=== PATIENT | female | born 1995 | race Caucasian/White ===

== ENCOUNTER 2016-07-07 10:28 | Inpatient (IN) | payer OTHER ==
[~2016-07-07] VITALS: Ht 154.9 cm; Wt 64.5 kg
[2016-07-10] MEDS ORDERED: OXYTOCIN 30U/ 0.9% NaCL 500ML 500 ML IV ONE (21:25)
[2016-07-10] MEDS ORDERED: ONDANSETRON 2MG/ML, 2ML IVPush PRN (21:30)
[2016-07-10] MEDS ORDERED: CALCIUM CARBONATE 500 MG TAB.CHEW PO PRN (21:30)
[2016-07-10] MEDS ORDERED: FENTANYL PF 100 MCG/2ML IVPush PRN (21:30)
[2016-07-10] MEDS ORDERED: TERBUTALINE 1 MG/ML, 1ML IVPush PRN (21:30)
[2016-07-10] MEDS ORDERED: FENTANYL PF 100 MCG/2ML IV PRN (21:30)
[2016-07-10] MEDS ORDERED: MISOPROSTOL 25 MCG TABLET VG PRN (21:30)
[2016-07-10 21:46] LABS: HEMOGLOBIN 12.6 g/dL (11.7-16.4)
[2016-07-10] MEDS ORDERED: PLEASE ENTER HEIGHT AND WEIGHT MC SCH (22:00)
[2016-07-10] MEDS ORDERED: LIDOCAINE 1%, 20ML ONE (22:05)
[2016-07-10] MEDS ORDERED: MISOPROSTOL 25 MCG TABLET ONE (22:05)
[2016-07-10] MEDS ORDERED: OXYTOCIN 30U/ 0.9% NaCL 500ML 500 ML ONE (22:06)
[2016-07-10] MEDS ORDERED: MISOPROSTOL 200 MCG TABLET ONE (22:06)
[2016-07-11] MEDS: LACTATED RINGERS 1,000 ML IV SCH ×5 (03:35→22:57)
[2016-07-11] MEDS ORDERED: FENTANYL/BUPIV./NS/PF 250 ML EPIDCONT ONE (04:08)
[2016-07-11] MEDS: D5%-LACTATED RINGERS 1,000 ML IV SCH ×3 (05:34→21:25)
[2016-07-11] MEDS ORDERED: FENTANYL/BUPIV./NS/PF 250 ML EPIDCONT SCH (06:57)
[2016-07-11] MEDS ORDERED: LACTATED RINGERS 1,000 ML IVBOLUS PRN (07:00)
[2016-07-11 07:54] VITALS: BP 114/76
[2016-07-11] MEDS ORDERED: OXYTOCIN 30U/ 0.9% NaCL 500ML 500 ML IV PRN (08:43)
[2016-07-11] MEDS ORDERED: NEWBORN KIT ONE (09:10)
[2016-07-11] MEDS ORDERED: PREN1TAB60 PO (09:59)
[2016-07-11] MEDS ORDERED: OXYTOCIN 30U/ 0.9% NaCL 500ML 500 ML IV SCH (18:27)
[2016-07-11] MEDS ORDERED: OXYcodone/APAP 5/325MG TABLET PO PRN (18:30)
[2016-07-11] MEDS ORDERED: MISOPROSTOL 200 MCG TABLET PR PRN (18:30)
[2016-07-11] MEDS ORDERED: OXYcodone IR 5MG TABLET PO PRN (18:30)
[2016-07-11] MEDS ORDERED: ONDANSETRON 2MG/ML, 2ML IV PRN (18:30)
[2016-07-11] MEDS ORDERED: OXYTOCIN 30U/ 0.9% NaCL 500ML 500 ML ONE (19:05)
[2016-07-11 19:58] VITALS: BP 143/64
[2016-07-11] MEDS ORDERED: IBUPROFEN 600 MG TABLET ONE (20:07)
[2016-07-11] MEDS: IBUPROFEN 600 MG TABLET PO PRN (20:11)
[2016-07-11 20:45] VITALS: BP 126/73
[2016-07-11 22:15] VITALS: BP 117/67
[2016-07-12 00:26] VITALS: BP 108/60
[2016-07-12 03:10] LABS: HEMOGLOBIN 10.4 g/dL (11.7-16.4)
[2016-07-12 03:45] LABS: DIFF TOTAL CELLS COUNTED 100 CELL DIFF
[2016-07-12 03:46] LABS: LARGE PLATELETS 1+; VERIFY COUNTS? YES
[2016-07-12 04:01] VITALS: BP 111/65
[2016-07-12 08:30] VITALS: BP 101/59
[2016-07-12] MEDS: PRENATAL VIT/IRON/FA 1 EACH TABLET PO SCH (08:34)
[2016-07-12] MEDS: IBUPROFEN 600 MG TABLET PO PRN ×2 (08:34→16:51)
[2016-07-12] MEDS: DOCUSATE 100 MG CAPSULE PO PRN (08:34)
[2016-07-12 12:00] VITALS: BP 120/79
[2016-07-12 16:00] VITALS: BP 114/72
[2016-07-12 21:00] VITALS: BP 107/64
[2016-07-13 07:30] VITALS: BP 115/66
[2016-07-13] MEDS: IBUPROFEN 600 MG TABLET PO PRN (09:48)
[2016-07-13] MEDS: PRENATAL VIT/IRON/FA 1 EACH TABLET PO SCH (09:48)
[2016-07-13] MEDS: DOCUSATE 100 MG CAPSULE PO PRN (09:48)
== END 2016-07-13 12:07 | disposition home or self-care (01) | DRG 775 ==
LOC: LDIP 07-10 21:12 → 2NW 07-11 20:27
PROVIDERS: ADMIT Obstetrics & Gynecology; ATTEND Obstetrics & Gynecology
PROC: 10E0XZZ Delivery of Products of Conception, External Approach (ICD-10-PCS; principal; 2016-07-11)
PROC: 10907ZC Drainage of Amniotic Fluid, Therapeutic from Products of Conception, Via Natural or Artificial Opening (ICD-10-PCS; 2016-07-11)
PROC: 0W8NXZZ Division of Female Perineum, External Approach (ICD-10-PCS; 2016-07-11)
PROC: 00HU33Z Insertion of Infusion Device into Spinal Canal, Percutaneous Approach (ICD-10-PCS; 2016-07-11)
PROC: 3E0R3CZ (ICD-10-PCS; 2016-07-11)
DX: O48.0 Post-term pregnancy (principal); Z37.0 Single live birth; Z3A.40 40 weeks gestation of pregnancy; O69.81X0 Labor and delivery complicated by cord around neck, without compression, not applicable or unspecified
CPT/HCPCS: 36415; 59200; 85025; 86850; 86900; J2590; J3010; J7120; J7121

== ENCOUNTER 2018-12-18 22:43 | Inpatient (IN) | payer BC ==
[~2018-12-18] VITALS: Ht 154.9 cm; Wt 64.0 kg
[~2018-12-18 22:43] MED LIST: PREN1TAB60 PO
[2018-12-18 22:46] VITALS: BP 129/77
[2018-12-18] MEDS ORDERED: OXYTOCIN 30U/ 0.9% NaCL 500ML 500 ML IV ONE (23:54)
[2018-12-18] MEDS ORDERED: D5%-LACTATED RINGERS 1,000 ML IV SCH (23:54)
[2018-12-18] MEDS ORDERED: FENTANYL/BUPIV./NS/PF 250 ML EPIDCONT SCH (23:56)
[2018-12-19] MEDS ORDERED: SODIUM CITRATE/CITRIC ACID 30 ML UDC PO PRN
[2018-12-19] MEDS ORDERED: LACTATED RINGERS 1,000 ML IVBOLUS PRN
[2018-12-19] MEDS ORDERED: CALCIUM CARBONATE 500 MG TAB.CHEW PO PRN
[2018-12-19] MEDS ORDERED: FENTANYL PF 100 MCG/2ML IV PRN
[2018-12-19] MEDS ORDERED: METOCLOPRAMIDE 5 MG/ML, 2ML IVPush PRN
[2018-12-19] MEDS ORDERED: ONDANSETRON 2MG/ML, 2ML IVPush PRN
[2018-12-19] MEDS ORDERED: TERBUTALINE 1 MG/ML, 1ML IVPush PRN
[2018-12-19] MEDS ORDERED: FENTANYL PF 100 MCG/2ML IVPush PRN
[2018-12-19] MEDS ORDERED: NEWBORN KIT ONE (00:02)
[2018-12-19] MEDS ORDERED: LIDOCAINE 1%, 20ML ONE (00:02)
[2018-12-19] MEDS ORDERED: MISOPROSTOL 200 MCG TABLET ONE (00:03)
[2018-12-19] MEDS ORDERED: OXYTOCIN 30U/ 0.9% NaCL 500ML 500 ML ONE ×2 (00:03→09:05)
[2018-12-19] MEDS ORDERED: FENTANYL PF 100 MCG/2ML ONE (00:07)
[2018-12-19] MEDS ORDERED: ONDANSETRON 2MG/ML, 2ML ONE (00:07)
[2018-12-19 00:29] LABS: BASOPHILS # (AUTO) 0.05 x10^3/uL (0-0.1); BASOPHILS % (AUTO) 0 % (0-1); EOSINOPHILS % (AUTO) 2 % (1-7); LYMPHOCYTES # (AUTO) 1.43 x10^3/uL (1-3.4); LYMPHOCYTES % (AUTO) 8 % (22-44); MD NO; MEAN CORPUSCULAR HEMOGLOBIN 30.7 pg (27.0-34.8); MEAN CORPUSCULAR HGB CONC 33.6 g/dL (32.4-35.8); MEAN CORPUSCULAR VOLUME 91.4 fL (80-100); MEAN PLATELET VOLUME 9.4 fL (7.4-10.4); MONOCYTES # (AUTO) 0.95 x10^3/uL (0.2-0.8); MONOCYTES % (AUTO) 5 % (2-9); NEUTROPHILS # (AUTO) 14.94 x10^3/uL (1.8-6.8); NEUTROPHILS % (AUTO) 85 % (42-75); PLATELET COUNT 146 x10^3/uL (130-400); RED BLOOD COUNT 4.26 x10^6/uL (3.82-5.3); RED CELL DISTRIBUTION WIDTH 13.7 % (9.6-15.2)
[2018-12-19] MEDS ORDERED: FENTANYL PF 500 MCG, BUPIVACAINE/PF 0.5%, 30ML 62.5 ML in SODIUM CHLORIDE 0.9% 177.5 ML EPIDCONT SCH (00:30)
[2018-12-19] MEDS: LACTATED RINGERS 1,000 ML IV SCH ×2 (00:36→02:07)
[2018-12-19] MEDS ORDERED: BUPIVACAINE 0.25% ONE ×2 (00:40→00:45)
[2018-12-19] MEDS ORDERED: LIDOCAINE/PF 1.5%-EPI 1:200K, 30ML ONE (00:45)
[2018-12-19] MEDS ORDERED: FENTANYL/BUPIV./NS/PF 250 ML EPIDCONT ONE (00:45)
[2018-12-19] MEDS ORDERED: OXYTOCIN 30U/ 0.9% NaCL 500ML 500 ML IV SCH (06:42)
[2018-12-19] MEDS ORDERED: SIMETHICONE 80 MG CHEW TAB PO PRN (07:00)
[2018-12-19] MEDS ORDERED: RHOGAM FROM BLOOD BANK 1 NOTE EA IM/IV ONE (07:00)
[2018-12-19] MEDS ORDERED: DIPH,PERTUSS(ACELL),TET VAC/PF NC IM-VACC PRN (07:00)
[2018-12-19] MEDS ORDERED: ACETAMINOPHEN 325 MG TABLET PO PRN ×2 (07:00)
[2018-12-19] MEDS ORDERED: IBUPROFEN 600 MG TABLET PO PRN (07:00)
[2018-12-19] MEDS ORDERED: MISOPROSTOL 200 MCG TABLET PR PRN (07:00)
[2018-12-19] MEDS ORDERED: DOCUSATE 100 MG CAPSULE PO PRN (07:00)
[2018-12-19] MEDS ORDERED: OXYcodone/APAP 5/325MG TABLET PO PRN ×2 (07:00)
[2018-12-19] MEDS ORDERED: ONDANSETRON 2MG/ML, 2ML IV PRN (07:00)
[2018-12-19] MEDS ORDERED: MAGNESIUM HYDROXIDE 8%, 30ML UDC PO PRN (07:00)
[2018-12-19] MEDS ORDERED: IBUPROFEN 600 MG TABLET ONE (08:34)
[2018-12-19] MEDS: PRENATAL VIT/IRON/FA 1 EACH TABLET PO SCH (09:00)
[2018-12-19 11:45] VITALS: BP 103/60
[2018-12-19 16:30] VITALS: BP 105/69
[2018-12-19 17:36] LABS: BASOPHILS # (AUTO) 0.02 x10^3/uL (0-0.1); BASOPHILS % (AUTO) 0 % (0-1); EOSINOPHILS % (AUTO) 2 % (1-7); LYMPHOCYTES # (AUTO) 1.54 x10^3/uL (1-3.4); LYMPHOCYTES % (AUTO) 12 % (22-44); MD NO; MEAN CORPUSCULAR HEMOGLOBIN 30.6 pg (27.0-34.8); MEAN CORPUSCULAR HGB CONC 33.3 g/dL (32.4-35.8); MEAN CORPUSCULAR VOLUME 91.8 fL (80-100); MEAN PLATELET VOLUME 9.2 fL (7.4-10.4); MONOCYTES # (AUTO) 1.17 x10^3/uL (0.2-0.8); MONOCYTES % (AUTO) 9 % (2-9); NEUTROPHILS # (AUTO) 10.55 x10^3/uL (1.8-6.8); NEUTROPHILS % (AUTO) 78 % (42-75); PLATELET COUNT 128 x10^3/uL (130-400); RED BLOOD COUNT 3.93 x10^6/uL (3.82-5.3)
[2018-12-19 20:16] VITALS: BP 103/66
[2018-12-20] VITALS: BP 103/64
[2018-12-20 03:56] VITALS: BP 95/60
[2018-12-20 07:31] VITALS: BP 99/62
[2018-12-20] MEDS: PRENATAL VIT/IRON/FA 1 EACH TABLET PO SCH (10:44)
== END 2018-12-20 15:45 | disposition home or self-care (01) | DRG 807 ==
LOC: LDOP 22:43 → LDIP 12-19 → 2NW 12-19 11:33
PROVIDERS: ADMIT Obstetrics & Gynecology; ATTEND Obstetrics & Gynecology
PROC: 10E0XZZ Delivery of Products of Conception, External Approach (ICD-10-PCS; principal; 2018-12-19)
PROC: 10907ZC Drainage of Amniotic Fluid, Therapeutic from Products of Conception, Via Natural or Artificial Opening (ICD-10-PCS; 2018-12-19)
PROC: 3E0R3BZ Introduction of Anesthetic Agent into Spinal Canal, Percutaneous Approach (ICD-10-PCS; 2018-12-19)
PROC: 00HU33Z Insertion of Infusion Device into Spinal Canal, Percutaneous Approach (ICD-10-PCS; 2018-12-19)
DX: O80 Encounter for full-term uncomplicated delivery (principal); Z37.0 Single live birth; Z3A.39 39 weeks gestation of pregnancy
CPT/HCPCS: 36415; J3490; J7121; 82803; 85025; 86850; 86900; G0378; J3010; J2590; J7120